=== PATIENT | female | born 1945 | race Caucasian/White ===

== ENCOUNTER → 2018-04-05 | Outpatient (CLI) | payer MEDICARE ==
[~2018-04-05] MED LIST: ALLOPURINOL300 MG PO; ASPIRIN EC81 MG PO; ATENOLOL100 MG PO; DIOVAN HCT 1601 EACH PO; DIOVAN160 MG PO; EMEND80 MG; EMETROL ORAL S236 ML; IOPAMIDOL 370 MG/ML 200 ML INFUS..BTL INJ ONE; KEFLEX500 MG PO; METOCLOPRAMIDE PO; NEUPOGEN480 MCG/0. SC; NORCO 7.5-3251 EACH PO; PREDNISONE50 MG PO; PROMETHAZINE HC25 M1 PO; SIMVASTATIN40 MG PO; SODIUM CHLORIDE 0.9% 250ML 500 ML ONE; SODIUM CHLORIDE 0.9% 50ML 50 ML ONE; VICODIN HP 10-1 EACH PO; ZOLPIDEM TARTRA10 MG PO
--- NOTE | 2018-04-05 13:19 | Diagnostic Imaging Report ---
PROCEDURE: CT ABDOMEN AND PELVIS WITH CONTRAST TECHNIQUE: The abdomen and pelvis were scanned utilizing a multidetector helical scanner from the diaphragm to the lesser trochanter after the IV administration of 100 cc of Isovue 370 and the oral administration of 700 cc of H20. Coronal and sagittal multiplanar reformations were obtained. COMPARISON: CT Abdomen/Pelvis 11/02/13. INDICATIONS: LYMPHOMA FINDINGS: LOWER THORAX: Coronary atherosclerosis. Right fat containing Bochdalek hernia. HEPATOBILIARY: Subcentimeter hypodensity in segment 2 of the liver is too small to characterize and unchanged from CT on 11/02/13 and likely a cyst. No new focal hepatic lesions. No biliary ductal dilatation. SPLEEN: No splenomegaly. Subcentimeter splenic hypodensity is too small to characterize. PANCREAS: No focal masses or ductal dilatation. ADRENALS: A 1.3 cm left adrenal nodule on series 2, image 29 is unchanged from prior CT in 2014 and therefore likely benign. KIDNEYS/URETERS: No hydronephrosis, stones, or solid mass lesions. Left retroperitoneal mass is no longer present. PELVIC ORGANS/BLADDER: The uterus is absent. PERITONEUM / RETROPERITONEUM: No free air or fluid. Previously noted mesenteric masses and lymphadenopathy are no longer present. LYMPH NODES: No lymphadenopathy. VESSELS: Atherosclerotic calcifications of the abdominal aorta and branch vessels. GI TRACT: No wall thickening. Sigmoid diverticulosis without CT evidence of diverticulitis. There has been a prior partial small bowel resection with an anastomosis in the left mid abdomen. Mildly dilated jejunal loop adjacent to the anastomosis measuring up to 3.3 cm, without additional dilated loops to suggest obstruction. Air and enteric contents are present distal to the anastomosis. BONES AND SOFT TISSUES: No acute findings. Multilevel degenerative changes of the thoracolumbar spine. IMPRESSION: Post surgical changes status post interval partial small bowel resection for lymphoma. No specific evidence of lymphoma in the abdomen or pelvis. Dictated by: VIK MASCORRO M.D. on 04/05/2018 at 13:24 Electronically approved by: VIK MASCORRO M.D. on 04/05/2018 at 13:24
== END ==
LOC: CT 11:35
PROVIDERS: ATTEND Internal Medicine Medical Oncology
DX: C85.28 Mediastinal (thymic) large B-cell lymphoma, lymph nodes of multiple sites (principal); R10.9 Unspecified abdominal pain
CPT/HCPCS: 74177; J7050; Q9967

== ENCOUNTER → 2018-09-09 | Outpatient (CLI) | payer MEDICARE ==
[~2018-09-09] MED LIST changes: -IOPAMIDOL 370 MG/ML 200 ML INFUS..BTL INJ ONE; -SODIUM CHLORIDE 0.9% 250ML 500 ML ONE; -SODIUM CHLORIDE 0.9% 50ML 50 ML ONE
--- NOTE | 2018-09-09 12:34 | Diagnostic Imaging Report ---
EXAM: Right upper quadrant abdominal ultrasound COMPARISON: CT Abdomen/Pelvis 04/05/18. TECHNIQUE: Transverse and longitudinal images of the right upper quadrant abdomen were obtained FINDINGS: Liver: Size: 12.2 cm in the right midclavicular line, normal Appearance: Increased echogenicity, smooth contour Mass: No focal masses Gallbladder: Status post cholecystectomy. Bile Ducts: Intrahepatic Ducts: No dilatation Extrahepatic Ducts: Common bile duct measures 0.5 cm, no dilatation Pancreas: Visualized portions of the pancreatic head, neck and proximal body are normal. Kidney: The right kidney measures 8.4 x 4.0 x 4.4 cm without evidence of hydronephrosis or stone. Vessels: Aorta: Visualized portions are normal Inferior Vena Cava: Visualized portions are normal Main Portal Vein: 0.7 cm, normal size with hepatopetal flow. Free Fluid: No evidence of ascites. IMPRESSION: Hepatic steatosis. Status post cholecystectomy. Signed by: Dr. Titi Gómez MD on 09/09/2018 12:31 PM
== END ==
LOC: US 11:43
PROVIDERS: ATTEND Internal Medicine
DX: R10.11 Right upper quadrant pain (principal)
CPT/HCPCS: 76705

== ENCOUNTER → 2018-10-18 | Outpatient (CLI) | payer MEDICARE ==
[~2018-10-18] MED LIST changes: +IOPAMIDOL 370 MG/ML 200 ML INFUS..BTL INJ ONE; +SODIUM CHLORIDE 0.9% 500ML 500 ML ONE; +SODIUM CHLORIDE 0.9% 50ML 50 ML ONE
--- NOTE | 2018-10-18 14:51 | Diagnostic Imaging Report ---
EXAM: CT Chest and abdomen WITH contrast 10/18/2018 9:41 AM INDICATION: Cough. Right upper quadrant pain. Right flank pain. History of lymphoma. Pain in the thoracic spine region. Hypertension. Appendectomy. Cholecystectomy. Pelvic surgery. Abdominal cancer with surgery. Partial small bowel removal. COMPARISON: Ultrasound 09/09/2018 TECHNIQUE: Chest and abdomen was scanned utilizing a multidetector helical scanner after administration of IV contrast. Coronal and sagittal reformations were obtained. Routine protocol was performed. IV CONTRAST: 100 mL of Isovue-370 RADIATION DOSE: Total DLP: 730.32 mGy*cm Estimated effective dose: (DLP x 0.014 x size factor) mSv All CT scans are performed using radiation dose reduction techniques. Technical factors are evaluated and adjusted to ensure appropriate moderation of exposure. Automated dose management technology is applied to adjust the radiation dose to minimize exposure while achieving a diagnostic-quality image. COMPLICATIONS: None FINDINGS: LINES/ TUBES: Left anterior chest port catheter with distal tip in the high superior vena cava. LUNGS AND AIRWAYS: The lungs are unremarkable. Airways are normal. PLEURA: The pleural spaces are clear. HEART AND MEDIASTINUM: The thyroid gland is normal. No mediastinal, hilar or axillary lymphadenopathy. The heart is normal in size.. There is no pericardial effusion. HEPATOBILIARY: There is a too small to characterize hypodensity in the superior left hepatic lobe most likely due to a small cyst. No biliary ductal dilation. GALLBLADDER: Surgically absent SPLEEN: There is a too small contrast hypodensity in the anterior superior spleen as seen on series 2 image 54. PANCREAS: No focal masses or ductal dilatation. ADRENALS: There is nonspecific fullness of the left adrenal gland. The right adrenal gland is unremarkable. KIDNEYS/URETERS: Kidneys enhance symmetrically. No hydronephrosis. No cystic or solid mass lesions. No stones. GI TRACT: No abnormal distention, wall thickening, or evidence of bowel obstruction. PELVIC ORGANS/BLADDER: Unremarkable. LYMPH NODES: No lymphadenopathy. VESSELS: Scattered atherosclerotic calcification. PERITONEUM / RETROPERITONEUM: No free air or fluid. BONES: Scattered degenerative changes are seen. SOFT TISSUES: Unremarkable. IMPRESSION: 1. No acute CT abnormality in the chest or abdomen. 2. There is a too small contrast hypodensity in the anterior superior spleen and in the superior left hepatic lobe. Attention to these areas on follow-up imaging is recommended. Signed by: Dr. Roderick Lopez M.D. on 10/18/2018 2:48 PM
== END ==
LOC: CT 09:33
PROVIDERS: ATTEND Internal Medicine
DX: R05 Cough (principal); C85.90 Non-Hodgkin lymphoma, unspecified, unspecified site; R10.11 Right upper quadrant pain
CPT/HCPCS: 36415; 71260; 74160; 82565; 84520; 96360; J7040; Q9967

== ENCOUNTER 2019-03-22 12:35 | Emergency (ER) | payer MEDICARE ==
[~2019-03-22] VITALS: Ht 165.1 cm; Wt 95.7 kg
[~2019-03-22 12:35] MED LIST changes: -IOPAMIDOL 370 MG/ML 200 ML INFUS..BTL INJ ONE; -SODIUM CHLORIDE 0.9% 500ML 500 ML ONE; -SODIUM CHLORIDE 0.9% 50ML 50 ML ONE
--- OUTSIDE RECORDS SUMMARY | 2019-03-22 12:41 | XMS REPORT | Summary of Care ---
Author Author Susan Grijalva, Nicole Organization Unknown Address Unknown Phone Unavailable Care Team Providers Care Beam Doffer Name Role Phone CHIKA CASE M.D. Unavailable Unavailable Chika Case MD Unavailable Unavailable Unavailable Unavailable Functional Status Name Dates Details Functional status health issues are not documented Status: Name Dates Details Cognitive status health issues are not documented Status: Problems Name Dates Details Coronary artery disease (414.00, I25.10) Status: Active Preop cardiovascular exam (V72.81, Z01.810) Status: Active Medications Name Dates Details Ambien 10 MG Oral Tablet TAKE 1 TABLET AT BEDTIME NEEDED FOR INSOMNIA. Quantity: 30 Active Valsartan 80 MG Oral Tablet TAKE 1 TABLET ONCE DAILY. * Refills: 0 Active Aspir-81 81 MG Oral Tablet Delayed Release TAKE 1 TABLET DAILY. * Quantity: 90 Refills: 3 CHIKA CASE M.D. * Start : 04-May-2017 Active Atenolol 25 MG Oral Tablet TAKE 1 TABLET DAILY * Quantity: 90 Refills: 3 CHIKA CASE M.D. * Start : 04-May-2017 Active 90 Tablet Bottle Atorvastatin Calcium 40 MG Oral Tablet TAKE 1 TABLET BEDTIME * Quantity: 90 Refills: 3 CHIKA CASE M.D. * Start : 04-May-2017 Active Metoprolol Succinate ER 25 MG Oral Tablet Extended Release 24 Hour TAKE 1 TABLET BY MOUTH EVERY DAY * Quantity: 90 Refills: 1 CHIKA CASE M.D. * Start : 26-Nov-2017 Active Allergies and Adverse Reactions Name Dates Details TETANUS (Allergy) Status: Active Ultram TABS (Allergy) Status: Active Procedures Procedure Dates Details Procedures not documented Immunization Name Dates Details Immunizations not documented Social History Name Dates Details - Status: Name Dates Details Never smoker Vital Signs Date Test Result Details No Known Vitals to report Results Date Description Value Details Results not documented Plan of Care Name Dates Details Planned Observations Planned Goals not documented Instructions Name Dates Details Instructions not documented Encounters Appointment; CHIKA CASE M.D. Encounter Diagnosis: Problem not documented On: 04-May-2017 8:00
--- OUTSIDE RECORDS SUMMARY | 2019-03-22 12:41 | XMS REPORT ---
Author Author [facility] Address Unknown Phone Unavailable Care Team Providers Care Legal Coordinator Name Role Phone ANGEL RUIZ Unavailable Unavailable KAL LAWS Unavailable Unavailable Payers Payer Name Policy Type Policy Number Effective Date Expiration Date Problems This patient has no known problems. Allergies, Adverse Reactions, Alerts Allergy Name Allergy Type Status Severity Reaction(s) Onset Date Inactive Date Treating Clinician Comments Tetanus Vaccines and Toxoid DA Active SV 2018-07-06 00:00:00 tramadol HCl DA Active MO 2018-06-30 00:00:00 Tetanus Vaccines and Toxoid DA Active SV 2018-06-30 00:00:00 tramadol HCl DA Active MO 2017-05-19 00:00:00 Tetanus Vaccines and Toxoid DA Active SV 2017-05-19 00:00:00 Medications This patient has no known medications. Results Test Description Test Time Test Comments Text Results Atomic Results Result Comments CT CHEST W 2018-10-18 14:36:00 [place] [address] Patient Name: FRANDY SMITH MR #: [id number] : 1945 Age/Sex: 72/F Req #: [id number] Adm Physician: Ordered by: ANGEL RUIZ MD Report #: [id number] Location: [place] Room/Bed: Procedure: [id number] CT/CT CHEST W Exam Date: 10/18/18 Exam Time: 1115 REPORT STATUS: Signed EXAM: CT Chest and abdomen WITH contrast 10/18/2018 9:41 AM INDICAT ION: Cough. Right upper quadrant pain. Right flank pain. History of lymphoma. Pain in the thoracic spine region. Hypertension. Appendectomy. Cholecystectomy. Pelvic surgery. Abdominal cancer with surgery. Partial small bowel removal. COMPARISON: Ultrasound 09/09/2018 TECHNIQUE: Chest and abdomen was scanned utilizing a multidetector helical scanner after administration of IV contrast. Coronal and sagittal reformations were obtained. Routine protocol was performed. IV CONTRAST: 100 mL of Isovue-370 RADIATION DOSE: Total DLP: 730.32 mGy*cm Estimated effective dose: (DLP x 0.014 x size factor) mSv All CT scans are performed using radiation dose reduction techniques. Technical factors are evaluated and adjusted to ensure appropriate moderation of exposure. Automated dose management technology is applied to adjust the radiation dose to minimize exposure while achieving a diagnostic-quality image. COMPLICATIONS: None FINDINGS: LINES/ TUBES: Left anterior chest port catheter with distal tip in the high superior vena cava. LUNGS AND AIRWAYS: The lungs are unremarkable. Airways are normal. PLEURA: The pleural spaces are clear. HEART AND MEDIASTINUM: The thyroid gland is normal. No mediastinal, hilar or axillary lymphadenopathy. The heart is normal in size.. There is no pericardial effusion. HEPATOBILIARY: There is a too small to characterize hypodensity in the superior left hepatic lobe most likely due to a small cyst. No biliary ductal dilation. GALLBLADDER: Surgically absent SPLEEN: There is a too small contrast hypodensity in the anterior superior spleen as seen on series 2 image 54. PANCREAS: No focal masses or ductal dilatation. ADRENALS: There is nonspecific fullness of the left adrenal gland. The right adrenal gland is unremarkable. KIDNEYS/URETERS: Kidneys enhance symmetrically. No hydronephrosis. No cystic or solid mass lesions. No stones. GI TRACT: No abnormal distention, wall thickening, or evidence of bowel obstruction. PELVIC ORGANS/BLADDER: Unremarkable. LYMPH NODES: No lymphadenopathy. VESSELS: Scattered atherosclerotic calcification. PERITONEUM / RETROPERITONEUM: No free air or fluid. BONES: Scattered degenerative changes are seen. SOFT TISSUES: Unremarkable. IMPRESSION: 1. No acute CT abnormality in the chest or abdomen. 2. There is a too small contrast hypodensity in the anterior superior spleen and in the superior left hepatic lobe. Attention to these areas on follow-up imaging is recommended. Signed by: Dr. Armand Lopez M.D. on 10/18/2018 2:48 PM Dictated By: ARMAND LOPEZ MD, MD 1448 Transcribed By: GONZALEZ on 10/18/18 1448 COPY TO: ANGEL RUIZ MD CT ABDOMEN W 2018-10-18 14:36:00 [place] [address] Patient Name: FRANDY SMITH MR #: [id number] : 1945 Age/Sex: 72/F Req #: [id number] Adm Physician: Ordered by: ANGEL RUIZ MD Report #: [id number] Location: CT Room/Bed: Procedure: [id number] CT/CT ABDOMEN W Exam Date: 10/18/18 Exam Time: 1115 REPORT STATUS: Signed EXAM: CT Chest and abdomen WITH contrast 10/18/2018 9:41 AM INDICATION: Cough. Right upper quadrant pain. Right flank pain. History of lymphoma. Pain in the thoracic spine region. Hypertension. Appendectomy. Cholecystectomy. Pelvic surgery. Abdominal cancer with surgery. Partial small bowel removal. COMPARISON: Ultrasound 09/09/2018 TECHNIQUE: Chest and abdomen was scanned utilizing a multidetector helical scanner after administration of IV contrast. Coronal and sagittal reformations were obtained. Routine protocol was performed. IV CONTRAST: 100 mL of Isovue-370 RADIATION DOSE: Total DLP: 730.32 mGy*cm Estimated effective dose: (DLP x 0.014 x size factor) mSv All CT scans are performed using radiation dose reduction techniques. Technical factors are evaluated and adjusted to ensure appropriate moderation of exposure. Automated dose management technology is applied to adjust the radiation dose to minimize exposure while achieving a diagnostic-quality image. COMPLICATIONS: None FINDINGS: LINES/ TUBES: Left anterior chest port catheter with distal tip in the high superior vena cava. LUNGS AND AIRWAYS: The lungs are unremarkable. Airways are normal. PLEURA: The pleural spaces are clear. HEART AND MEDIASTINUM: The thyroid gland is normal. No mediastinal, hilar or axillary lymphadenopathy. The heart is normal in size.. There is no pericardial effusion. HEPATOBILIARY: There is a too small to characterize hypodensity in the superior left hepatic lobe most likely due to a small cyst. No biliary ductal dilation. GALLBLADDER: Surgically absent SPLEEN: There is a too small contrast hypodensity in the anterior superior spleen as seen on series 2 image 54. PANCREAS: No focal masses or ductal dilatation. ADRENALS: There is nonspecific fullness of the left adrenal gland. The right adrenal gland is unremarkable. KIDNEYS/URETERS: Kidneys enhance symmetrically. No hydronephrosis. No cystic or solid mass lesions. No stones. GI TRACT: No abnormal distention, wall thickening, or evidence of bowel obstruction. PELVIC ORGANS/BLADDER: Unremarkable. LYMPH NODES: No lymphadenopathy. VESSELS: Scattered atherosclerotic calcification. PERITONEUM / RETROPERITONEUM: No free air or fluid. BONES: Scattered degenerative changes are seen. SOFT TISSUES: Unremarkable. IMPRESSION: 1. No acute CT abnormality in the chest or abdomen. 2. There is a too small contrast hypodensity in the anterior superior spleen and in the superior left hepatic lobe. Attention to these areas on follow-up imaging is recommended. Signed by: Dr. Armand Lopez M.D. on 10/18/2018 2:48 PM Dictated By: ARMAND LOPEZ MD, MD 1445 Transcribed By: GONZALEZ on 10/18/18 1447 COPY TO: ANGEL RUIZ MD LIVER 2018-09-09 12:26:00 [facility] [address] [place] [address] Patient Name: FRANDY SMITH MR #: [id number] : 1945 Age/Sex: 72/F Req #: [id number] Adm Physician: Ordered by: ANGEL RUIZ MD Report #: [id number] Location: Room/Bed: Procedure: [id number] US/US LIVER Exam Date: 09/09/18 Exam Time: 1200 REPORT STATUS: Signed EXAM: Right upper quadrant abdominal ultrasound COMPARISON: CT A bdomen/Pelvis 04/05/18. TECHNIQUE: Transverse and longitudinal images of the right upper quadrant abdomen were obtained FINDINGS: Liver: Size: 12.2 cm in the right midclavicular line, normal Appearance: Increased echogenicity, smooth contour Mass: No focal masses Gallbladder: Status post cholecystectomy. Bile Ducts: Intrahepatic Ducts: No dilatation Extrahepatic Ducts: Common bile duct measures 0.5 cm, no dilatation Pancreas: Visualized portions of the pancreatic head, neck and proximal body are normal. Kidney: The right kidney measures 8.4 x 4.0 x 4.4 cm without evidence of hydronephrosis or stone. Vessels: Aorta: Visualized portions are normal Inferior Vena Cava: Visualized portions are normal Main Portal Vein: 0.7 cm, normal size with hepatopetal flow. Free Fluid: No evidence of ascites. IMPRESSION: Hepatic steatosis. Status post cholecystectomy. Signed by: Dr. Vik Mascorro MD on 09/09/2018 12:31 PM Dictated By: VIK MASCORRO MD 1231 Transcribed By: GONZALEZ on 09/09/18 1231 COPY TO: ANGEL RUIZ MD SCR [facility] HELGA CAD DIGITAL 2018-07-29 15:45:48 - SCR MAMM BILATERAL HELGA CAD DIGITALBILATERAL DIGITAL SCREENING MAMMOGRAM 3D/2D WITH CAD: 07/28/2018CLINICAL: Asymptomatic. Digital breast tomosynthesis was performed in addition to routine CC and MLO views. Current mammographic images were evaluated by either a [employer] M-Vu or a [employer] Image[employer]er CAD (computer aided detection system). Comparison is made to exams dated 06/17/2017 mammogram, 04/15 mammogram, 02/11/2015 mammogram, 07/11/2013 mammogram, and 01/05/2012 mammogram - [facility]. There are scattered fibroglandular tissues in both breasts. There are benign calcifications in the left breast. No suspicious mass, architectural distortion, malignant type calcification, or lymph node abnormality detected. Breast architecture is stable compared to prior exams.IMPRESSION: BENIGNThere is no mammographic evidence of malignancy. Resume annual screening mammography in one year. Payton griggs/:07/29/2018 15:45:48 copy to: Angel Ruiz MD, ph: [phone], fax: [phone] Technologist: Lalitha LEACH, [facility] [place] sent: BIRADS 1-2 Normal Mammogram BI-RADS: [address] ABDOMEN/PELVIS W 2018-04-05 13:24:00 [place] [address] Patient Name: FRANDY SMITH MR #: [id number] : 1945 Age/Sex: 72/F Req #: [id number] Adm Physician: Ordered by: KAL LAWS MD Report #: [id number] Location: [place] Room/Bed: Procedure: [id number] CT/CT ABDOMEN/PELVIS W Exam Date: 04/05/18 Exam Time: 1250 REPORT STATUS: Signed PROCEDURE: CT ABDOMEN AND PELVIS WITH CONTRAST TECHNIQUE: The abdomen and pelvis were scanned utilizing a multidetector helical scanner from the diaphragm to the lesser trochanter after the IV administration of 100 cc of Isovue 370 and the oral administration of 700 cc of H20. Coronal and sagittal multiplanar reformations were obtained. COMPARISON: CT Abdomen/Pelvis 11/02/13. INDICATIONS: LYMPHOMA FINDINGS: LOWER THORAX: Coronary atherosclerosis. Right fat containing Bochdalek hernia. HEPATOBILIARY: Subcentimeter hypodensity in segment 2 of the liver is too small to characterize and unchanged from CT on 11/02/13 and likely a cyst. No new focal hepatic lesions. No biliary ductal dilatation. SPLEEN: No splenomegaly. Subcentimeter splenic hypodensity is too small to characterize. PANCREAS: No focal masses or ductal dilatation. ADRENALS: A 1.3 cm left adrenal nodule on series 2, image 29 is unchanged from prior CT in 2013 and therefore likely benign. KIDNEYS/URETERS: No hydronephrosis, stones, or solid mass lesions. Left retroperitoneal mass is no longer present. PELVIC ORGANS/BLADDER: The uterus is absent. PERITONEUM / RETROPERITONEUM: No f ree air or fluid. Previously noted mesenteric masses and lymphadenopathy are no longer present. LYMPH NODES: No lymphadenopathy. VESSELS: Atherosclerotic calcifications of the abdominal aorta and branch vessels. GI TRACT: No wall thickening. Sigmoid diverticulosis without CT evidence of diverticulitis. There has been a prior partial small bowel resection with an anastomosis in the left mid abdomen. Mildly dilated jejunal loop adjacent to the anastomosis measuring up to 3.3 cm, without additional dilated loops to suggest obstruction. Air and enteric contents are present distal to the anastomosis. BONES AND SOFT TISSUES: No acute findings. Multilevel degenerative changes of the thoracolumbar spine. IMPRESSION: Post surgical changes status post interval partial small bowel resection for lymphoma. No specific evidence of lymphoma in the abdomen or pelvis. Dictated by: VIK MASCORRO M.D. on 04/05/2018 at 13:24 Electronically approved by: VIK MASCORRO M.D. on 04/05/2018 at 13:24 Dictated By: VIK MASCORRO MD 1324 Transcribed By: BHUMIKA on 04/05/18 1324 COPY TO: KAL LAWS MD
[2019-03-22 13:53] LABS: BASOPHILS % 0.5 % (0.0-1.0); EOSINOPHILS # (AUTO) 0.1 (0.0-0.4); EOSINOPHILS % 0.8 % (0.0-6.0); HEMATOCRIT 46.5 % (34.2-44.1); HEMOGLOBIN 15.4 g/dL (12.0-16.0); LYMPHOCYTES # (AUTO) 1.4 (1.0-3.2); MEAN CORPUSCULAR HGB CONC 33.1 g/dL (31-35); MEAN CORPUSCULAR VOLUME 90.5 fL (81-99); MONOCYTES # (AUTO) 0.5 (0.2-0.8); MONOCYTES % 7.2 % (4.4-11.3); NEUTROPHILS # (AUTO) 4.4 (2.1-6.9); NEUTROPHILS % 69.3 % (38.7-80.0); PLATELET COUNT 151 x10e3/uL (140-360); RED BLOOD COUNT 5.14 x10e6/uL (3.6-5.1); RED CELL DISTRIBUTION WIDTH 12.8 % (11.7-14.4)
[2019-03-22 14:14] LABS: ALBUMIN 4.4 g/dL (3.5-5.0); ALBUMIN/GLOBULIN RATIO 1.5 (0.8-2.0); ANION GAP 13.5 mmol/L (8-16); CALCIUM 10.1 mg/dL (8.4-10.2); CREATININE, SERUM 1.11 mg/dL (0.57-1.11); POTASSIUM 4.5 mmol/L (3.5-5.1)
[2019-03-22 14:20] LABS: CREATINE KINASE MB 0.9 ng/mL (0-5.0)
--- NOTE | 2019-03-22 14:33 | Diagnostic Imaging Report ---
CT BRAIN WO HISTORY: Headache COMPARISON: None. TECHNIQUE: Noncontrast axial scans were obtained from skull base to the vertex. Coronal and sagittal reconstructions obtained from the axial data. One or more of the following dose reduction techniques were used: Automated exposure control, adjustment of the mA and/or kV according to patient size, and/or utilization of iterative reconstruction technique. DISCUSSION: Scalp/Skull: Unremarkable. Brain sulci: Appropriate for patient's age. Ventricles: Normal in size and configuration. No hydrocephalus. Extra-axial spaces: No masses or fluid collections. Mild carotid siphon calcifications are present. Parenchyma: Mild periventricular white matter hypodensities are likely chronic microvascular ischemic changes. Punctate subcortical calcification in the left superior frontal gyrus may be from remote infection or inflammation. Otherwise, no mass, acute hemorrhage, or large vascular territory acute infarct. Dural sinuses: No abnormal densities. Sellar/Suprasellar region: Intact. Skull base: Intact. Incidental findings: Both ocular lenses are thinned. IMPRESSION: 1. No acute intracranial abnormalities. 2. Mild supratentorial chronic microvascular ischemic change. 3. Punctate subcortical calcification in the left superior frontal gyrus may be from remote infection or inflammation. Signed by: Dr. Leonadro Mcgill M.D. on 03/22/2019 2:29 PM
--- NOTE | 2019-03-22 14:43 | Diagnostic Imaging Report ---
EXAMINATION: CHEST SINGLE (PORTABLE) INDICATION: Dizziness, shortness of breath COMPARISON: Chest CT of 10/18/2018 FINDINGS: TUBES and LINES: Left chest port with tip near the confluence of innominate veins. LUNGS: The lung volumes are normal. No focal consolidation or pulmonary edema. PLEURA: No pleural effusion or pneumothorax. HEART AND MEDIASTINUM: The cardiomediastinal silhouette is normal in size and contour. BONES AND SOFT TISSUES: No acute fracture or dislocation. UPPER ABDOMEN: No free air under the diaphragm. IMPRESSION: No focal pneumonia or pulmonary edema. Signed by: Aime Mcclure MD on 03/22/2019 2:40 PM
[2019-03-22 14:46] LABS: BILIRUBIN,URINE NEGATIVE (NEGATIVE); CLARITY,URINE CLEAR (CLEAR); COLOR,URINE YELLOW (YELLOW); KETONES,URINE NEGATIVE (NEGATIVE); LEUKOCYTE ESTERASE ,URINE NEGATIVE (NEGATIVE); NITRITE,URINE NEGATIVE (NEGATIVE); PROTEIN,URINE DIPSTICK NEGATIVE (NEGATIVE); URINE UROBILINOGEN 0.2 mg/dL (0.2 - 1)
[2019-03-22 14:59] LABS: EPITHELIAL CELLS,URINE FEW /LPF
[2019-03-22] MEDS ORDERED: KETOROLAC TROMETHAMINE 30 MG/ML VIAL IV STA (15:11)
[2019-03-22] MEDS ORDERED: MECLIZINE HCL 12.5 MG TAB PO ONE (15:15)
[2019-03-22 16:19] VITALS: BP 123/61
== END 2019-03-22 16:36 | disposition home or self-care (01) ==
LOC: ER 12:35
DX: H81.11 Benign paroxysmal vertigo, right ear (principal); G44.52 New daily persistent headache (NDPH); G44.221 Chronic tension-type headache, intractable
CPT/HCPCS: 36415; 70450; 71045; 80053; 81001; 82550; 82553; 84484; 85025; 87086; 93005; 99284; J1885; J8597

== ENCOUNTER → 2021-09-22 | Outpatient (CLI) | payer MEDICARE ==
[~2021-09-22] MED LIST changes: +IOPAMIDOL 370 MG/ML 200 ML INFUS..BTL INJ ONE; +SODIUM CHLORIDE 0.9% 500ML 500 ML ONE; +SODIUM CHLORIDE 0.9% 50ML 50 ML ONE
[2021-09-22 14:08] LABS: CREATININE, SERUM 0.98 mg/dL (0.57-1.11)
== END ==
LOC: CT 13:02
PROVIDERS: ATTEND Internal Medicine Medical Oncology
DX: C85.90 Non-Hodgkin lymphoma, unspecified, unspecified site (principal); K76.0 Fatty (change of) liver, not elsewhere classified
CPT/HCPCS: 36415; 74177; 82565; 84520; 96360; J7040; Q9967

== ENCOUNTER → 2022-10-14 | Outpatient (CLI) | payer MEDICARE ==
[~2022-10-14] MED LIST changes: -IOPAMIDOL 370 MG/ML 200 ML INFUS..BTL INJ ONE; +LORAZEPAM INJ 2 MG/ML VIAL ONE; +ONDANSETRON HCL INJ 2MG/ML 2ML 2 MG/ML VIAL ONE; -SODIUM CHLORIDE 0.9% 500ML 500 ML ONE; -SODIUM CHLORIDE 0.9% 50ML 50 ML ONE
== END ==
LOC: MRI 10:24
PROVIDERS: ATTEND Internal Medicine
DX: M54.30 Sciatica, unspecified side (principal)
CPT/HCPCS: 72148; J2060; J2405

== ENCOUNTER 2022-11-05 08:57 | Observation (INO) | payer MEDICARE ==
[2022-11-04 10:32] LABS: BASOPHILS # (AUTO) 0.1 (0.0-0.1); BASOPHILS % 0.9 % (0.0-1.0); EOSINOPHILS # (AUTO) 0.1 (0.0-0.4); EOSINOPHILS % 2.3 % (0.0-6.0); HEMATOCRIT 46.7 % (34.2-44.1); HEMOGLOBIN 15.1 g/dL (12.0-16.0); LYMPHOCYTES # (AUTO) 1.5 (1.0-3.2); LYMPHOCYTES % 28.4 % (18.0-39.1); MEAN CORPUSCULAR HEMOGLOBIN 29.5 pg (28-32); MEAN CORPUSCULAR HGB CONC 32.3 g/dL (31-35); MEAN CORPUSCULAR VOLUME 91.4 fL (81-99); MONOCYTES # (AUTO) 0.5 (0.2-0.8); MONOCYTES % 9.2 % (4.4-11.3); NEUTROPHILS # (AUTO) 3.1 (2.1-6.9); PLATELET COUNT 173 x10e3/uL (140-360); RED BLOOD COUNT 5.11 x10e6/uL (3.6-5.1); RED CELL DISTRIBUTION WIDTH 13.2 % (11.7-14.4)
[2022-11-04 10:54] LABS: ANION GAP 13.9 mmol/L (8-16); BLOOD UREA NITROGEN 15 mg/dL (7-26); BUN/CREATININE RATIO 15 (6-25); CALCIUM 9.4 mg/dL (8.4-10.2); CARBON DIOXIDE 27 mmol/L (22-29); CHLORIDE 106 mmol/L (98-107); GLUCOSE 95 mg/dL (74-118); POTASSIUM 3.9 mmol/L (3.5-5.1); SODIUM 143 mmol/L (136-145)
[2022-11-04 11:19] LABS: INR 0.98; PROTHROMBIN TIME 13.2 seconds (11.9-14.5)
[2022-11-04] MEDS: MECLIZINE HCL 12.5 MG TAB PO SCH (21:00)
[2022-11-05] VITALS (8 sets, daily range): BP systolic 97–115; BP diastolic 53–90
[~2022-11-05] VITALS: Ht 165.1 cm; Wt 91.6 kg
[~2022-11-05 08:57] MED LIST changes: +EYE VITAMIN; +FLONASE ALLERG9.9 ML INH; -LORAZEPAM INJ 2 MG/ML VIAL ONE; +MECLIZINE HCL12.5 MG PO; +MULTI-VITAMIN1 EACH PO; -ONDANSETRON HCL INJ 2MG/ML 2ML 2 MG/ML VIAL ONE; +ONDANSETRON ODT4 MG PO; +PRESERVISION A1 EAC2; +XANAX0.25 MG PO
[2022-11-05] MEDS ORDERED: CEFAZOLIN SODIUM 2 GM ONE (09:43)
[2022-11-05] MEDS ORDERED: FENTANYL CITRATE/PF 100MCG/2 ML INJ ONE (11:15)
[2022-11-05] MEDS ORDERED: MIDAZOLAM HCL 2 MG/2 ML VIAL ONE (11:15)
[2022-11-05] MEDS ORDERED: SEVOFLURANE INHAL SOLN 250 ML PEN BTL ONE (12:01)
[2022-11-05] MEDS ORDERED: DEXAMETHASONE SOD PHOS INJ 4 MG/ML SDV ONE (12:01)
[2022-11-05] MEDS ORDERED: ONDANSETRON HCL INJ 2MG/ML 2ML 2 MG/ML VIAL ONE (12:01)
[2022-11-05] MEDS ORDERED: POVIDONE IODINE 0.05% 0.05 % ML PO ONE (12:01)
[2022-11-05] MEDS ORDERED: PROPOFOL IV EMULSION 10 MG/ML 20 ML VIAL ONE (12:01)
[2022-11-05] MEDS ORDERED: LIDOCAINE HCL 2% LOCAL INJ 5 ML SDV VIAL INJ ONE (12:01)
[2022-11-05] MEDS ORDERED: EYE LUBRICANT OPTH OINT 3.5GM TUBE OP ONE (12:01)
[2022-11-05] MEDS ORDERED: HYDROCODON-ACE1 EA12 PO (12:20)
[2022-11-05] MEDS ORDERED: MAGNESIUM/ALUMINUM/SIMETHICONE 30 ML UDC PO PRN (12:30)
[2022-11-05] MEDS ORDERED: CARISOPRODOL 350 MG TAB PO PRN (12:30)
[2022-11-05] MEDS ORDERED: HYDROMORPHONE 1MG/1ML INJ IV PRN (12:30)
[2022-11-05] MEDS ORDERED: ONDANSETRON HCL 4 MG ORAL DISINTEGRATING TAB PO SCH (12:30)
[2022-11-05] MEDS ORDERED: ZOLPIDEM TARTRATE 5 MG TAB PO PRN (12:30)
[2022-11-05] MEDS: LACTATED RINGER'S 1,000 ML IV SCH ×2 (12:30→20:25)
[2022-11-05] MEDS ORDERED: PROMETHAZINE HCL (IM) 25 MG/ML VIAL IM PRN (12:30)
[2022-11-05] MEDS ORDERED: ONDANSETRON HCL INJ 2MG/ML 2ML 2 MG/ML VIAL IV PRN (12:30)
[2022-11-05] MEDS ORDERED: ACETAMINOPHEN 325 MG TAB PO PRN (12:30)
[2022-11-05] MEDS ORDERED: MORPHINE SULFATE 5 MG/ML VIAL IM PRN (12:30)
[2022-11-05] MEDS ORDERED: ALPRAZOLAM 0.25 MG TAB PO PRN (12:30)
[2022-11-05] MEDS ORDERED: HYDROMORPHONE 1MG/1ML INJ ONE (13:56)
[2022-11-05] MEDS: OXYCODONE/ACETAMINOPHEN 5-325 1 EACH TABLET PO PRN ×2 (14:32→20:25)
[2022-11-05] MEDS ORDERED: OXYCODONE/ACETAMINOPHEN 5-325 1 EACH TABLET ONE (14:42)
[2022-11-05] MEDS ORDERED: CARISOPRODOL 350 MG TAB ONE (14:42)
[2022-11-05] MEDS: MECLIZINE HCL 12.5 MG TAB PO SCH (15:00)
[2022-11-05] MEDS ORDERED: METOCLOPRAMIDE HCL 10 MG/2ML VIAL ONE (15:43)
[2022-11-05] MEDS ORDERED: FLUTICASONE PROPIONATE NASAL SPRAY NS SCH (21:00)
[2022-11-05] MEDS ORDERED: ZOLPIDEM TARTRATE 10 MG TAB PO SCH (21:00)
[2022-11-05] MEDS ORDERED: NON-FORMULARY MEDICATION (Fluticasone Propionate* (Flonase Allergy Relief*) 1 EACH) INH SCH (21:00)
[2022-11-06 02:12] VITALS: BP 106/52
[2022-11-06 04:57] VITALS: BP 115/63
[2022-11-06] MEDS: LACTATED RINGER'S 1,000 ML IV SCH (06:05)
[2022-11-06] MEDS ORDERED: MULTIVITAMINS/MINERALS TAB PO SCH (09:00)
[2022-11-06 09:06] VITALS: BP 125/53
[2022-11-06] MEDS: MECLIZINE HCL 12.5 MG TAB PO SCH (09:27)
[2022-11-06 10:30] VITALS: BP 125/53
[2022-11-06] MEDS ORDERED: ONDANSETRON HCL 4 MG ORAL DISINTEGRATING TAB PO PRN (13:00)
== END 2022-11-06 14:00 | disposition home or self-care (01) ==
LOC: OR 08:57 → PACU V 12:18 → MED/SURG 15:35
PROVIDERS: ADMIT Neurological Surgery; ATTEND Neurological Surgery
DX: M48.02 Spinal stenosis, cervical region (principal); Z01.818 Encounter for other preprocedural examination; Z20.822 Contact with and (suspected) exposure to COVID-19; M19.90 Unspecified osteoarthritis, unspecified site; E78.5 Hyperlipidemia, unspecified; F41.9 Anxiety disorder, unspecified; G89.29 Other chronic pain
CPT/HCPCS: 0223U; 36415; 63047; 63048; 71046; 72020; 80048; 85025; 85610; 85730; 86850; 86900; 88304; 88311; 93005; 97161; 97530 ×2; G0378 ×2; J0690 ×2; J1100; J1170 ×2; J2001; J2250; J2405 ×2; J2550; J2704; J2765; J3010; J7121 ×2; J8597

== ENCOUNTER → 2023-01-05 | Outpatient (CLI) | payer MEDICARE ==
[~2023-01-05] MED LIST changes: +HYDROCODON-ACE1 EA12 PO
== END ==
LOC: DX 09:32
PROVIDERS: ATTEND Internal Medicine
DX: R13.12 Dysphagia, oropharyngeal phase (principal)
CPT/HCPCS: 74240

== ENCOUNTER → 2023-02-10 | Outpatient (CLI) | payer MEDICARE | LOC: CT 13:58 | PROVIDERS: ATTEND Physician Assistant | DX: R06.09 Other forms of dyspnea (principal); G44.52 New daily persistent headache (NDPH); J30.9 Allergic rhinitis, unspecified | CPT/HCPCS: 70450 ==

== ENCOUNTER 2024-05-20 16:05 | Emergency (ER) | payer MEDICARE ==
[~2024-05-20] VITALS: Ht 165.1 cm; Wt 91.6 kg
[2024-05-20] MEDS: KETOROLAC TROMETHAMINE 60 MG/2 ML VIAL IM ONE (16:58)
[2024-05-20] MEDS: DIAZEPAM 5 MG TAB PO STA (16:59)
[2024-05-20 17:41] LABS: BILIRUBIN,URINE SMALL (NEGATIVE); CLARITY,URINE HAZY (CLEAR); COLOR,URINE YELLOW (YELLOW); GLUCOSE, URINE NEGATIVE (NEGATIVE); KETONES,URINE TRACE (NEGATIVE); LEUKOCYTE ESTERASE ,URINE NEGATIVE (NEGATIVE); NITRITE,URINE POSITIVE (NEGATIVE); PH,URINE 5 (5 - 7); PROTEIN,URINE DIPSTICK 1+ (NEGATIVE); URINE UROBILINOGEN 0.2 mg/dL (0.2 - 1)
[2024-05-20 17:42] LABS: BACTERIA,URINE MODERATE /HPF; EPITHELIAL CELLS,URINE FEW /LPF; RBC,URINE 0-5 /HPF (0-5)
[2024-05-20] MEDS: CEFDINIR 300 MG CAP PO ONE (19:00)
[2024-05-20] MEDS ORDERED: CEFDINIR300 MG PO (19:00)
[2024-05-20] MEDS ORDERED: VALIUM2 MG PO (19:00)
[2024-05-20 19:03] VITALS: PULSE 78; RESP 20; TEMP 98.4; O2SAT 97
[2024-05-21] MEDS ORDERED: CYCLOBENZAPRINE10 MG PO (21:18)
== END 2024-05-20 19:11 | disposition home or self-care (01) ==
LOC: ER 16:25
DX: R05.9 Cough, unspecified (principal); M62.830 Muscle spasm of back; N39.0 Urinary tract infection, site not specified; I48.91 Unspecified atrial fibrillation; I49.5 Sick sinus syndrome; G47.30 Sleep apnea, unspecified; K21.9 Gastro-esophageal reflux disease without esophagitis; F41.9 Anxiety disorder, unspecified; R94.31 Abnormal electrocardiogram [ECG] [EKG]; Z85.72 Personal history of non-Hodgkin lymphomas
CPT/HCPCS: 71045; 81001; 87086; 87186; 93005; 99283; J1885

== ENCOUNTER 2024-05-21 18:29 | Emergency (ER) | payer MEDICARE ==
[~2024-05-21] VITALS: Ht 165.1 cm; Wt 91.6 kg
[~2024-05-21 18:29] MED LIST changes: +CEFDINIR300 MG PO; +VALIUM2 MG PO
[2024-05-21 19:05] VITALS: TEMP 97.9
[2024-05-21] MEDS: KETOROLAC TROMETHAMINE 60 MG/2 ML VIAL IM ONE (19:53)
[2024-05-21 21:00] VITALS: PULSE 61; RESP 17; O2SAT 99
[2024-05-21] MEDS ORDERED: CYCLOBENZAPRINE10 MG PO (21:18)
== END 2024-05-21 21:31 | disposition home or self-care (01) ==
LOC: ER 18:41
DX: M54.50 Low back pain, unspecified (principal); I48.91 Unspecified atrial fibrillation; N18.9 Chronic kidney disease, unspecified; K21.9 Gastro-esophageal reflux disease without esophagitis; G47.30 Sleep apnea, unspecified; F41.9 Anxiety disorder, unspecified; Z85.72 Personal history of non-Hodgkin lymphomas
CPT/HCPCS: 72131; 74176; 99283; J1885

== ENCOUNTER 2024-09-10 18:56 | Emergency (ER) | payer MEDICARE ==
[~2024-09-10] VITALS: Ht 165.1 cm; Wt 88.0 kg
[~2024-09-10 18:56] MED LIST changes: +CYCLOBENZAPRINE10 MG PO
[2024-09-10 19:29] VITALS: PULSE 80; RESP 18; TEMP 98.5; O2SAT 97
[2024-09-10] MEDS ORDERED: TRAMADOL HCL 50 MG TAB PO ONE (19:45)
[2024-09-10] MEDS: ONDANSETRON HCL 4 MG ORAL DISINTEGRATING TAB PO ONE (21:15)
[2024-09-10] MEDS: KETOROLAC TROMETHAMINE 30 MG/ML VIAL IM STA (21:15)
[2024-09-10] MEDS ORDERED: ONDANSETRON ODT4 MG PO (22:04)
[2024-09-10 22:10] VITALS: BP 135/61; PULSE 18; RESP 18; TEMP 98.5
[2024-09-12] MEDS ORDERED: KETOROLAC TROME10 MG PO (12:18)
== END 2024-09-10 22:10 | disposition home or self-care (01) ==
LOC: FSED 19:35
DX: M54.50 Low back pain, unspecified (principal); R11.0 Nausea; I48.91 Unspecified atrial fibrillation; N18.9 Chronic kidney disease, unspecified; K21.9 Gastro-esophageal reflux disease without esophagitis; F41.9 Anxiety disorder, unspecified; G47.30 Sleep apnea, unspecified; Z11.52 Encounter for screening for COVID-19; Z85.72 Personal history of non-Hodgkin lymphomas; Z87.19 Personal history of other diseases of the digestive system; Z95.810 Presence of automatic (implantable) cardiac defibrillator
CPT/HCPCS: 0223U; 72131; 81003; 87400; 96372; 99283; J1885; Q0162

== ENCOUNTER 2024-10-17 09:06 | Inpatient (IN) | payer MEDICARE ==
[2024-10-17] VITALS (18 sets, daily range): BP systolic 87–123; BP diastolic 36–84; PULSE 59–95; RESP 14–23; TEMP 98.2–98.6; O2SAT 94–100
[~2024-10-17] VITALS: Ht 165.1 cm; Wt 86.2 kg
[~2024-10-17 09:06] MED LIST changes: +KETOROLAC TROME10 MG PO
[2024-10-17 10:08] LABS: BASOPHILS % 0.6 % (0.0-1.0); EOSINOPHILS # (AUTO) 0.1 (0.0-0.4); EOSINOPHILS % 1.9 % (0.0-6.0); HEMATOCRIT 29.6 % (34.2-44.1); HEMOGLOBIN 8.7 g/dL (12.0-16.0); LYMPHOCYTES # (AUTO) 1.1 (1.0-3.2); LYMPHOCYTES % 15.7 % (18.0-39.1); MEAN CORPUSCULAR HEMOGLOBIN 23.1 pg (28-32); MEAN CORPUSCULAR HGB CONC 29.4 g/dL (31-35); MEAN CORPUSCULAR VOLUME 78.7 fL (81-99); MONOCYTES # (AUTO) 0.4 (0.2-0.8); MONOCYTES % 6.4 % (4.4-11.3); NEUTROPHILS # (AUTO) 5.2 (2.1-6.9); PLATELET COUNT 262 x10e3/uL (140-360); RED BLOOD COUNT 3.76 x10e6/uL (3.6-5.1); RED CELL DISTRIBUTION WIDTH 14.9 % (11.7-14.4)
[2024-10-17] MEDS: ONDANSETRON HCL INJ 2MG/ML 2ML 2 MG/ML VIAL IV STA (10:27)
[2024-10-17] MEDS: SODIUM CHLORIDE 0.9% 1000ML 1,000 ML IV STA ×2 (10:27→13:10)
[2024-10-17] MEDS: DILTIAZEM HCL 5 MG/ML 5 ML VIAL IV STA ×2 (10:27→13:10)
[2024-10-17] MEDS: Morphine 2mg Syringe 2 MG/ML SYR IV ONE (10:28)
[2024-10-17] MEDS: PROMETHAZINE 12.5MG/ NACL 0.9% 12.5 MG/50 ML BAG IV ONE (10:28)
[2024-10-17 10:37] LABS: ALANINE AMINOTRANSFERASE 7 IU/L (0-55); ALBUMIN 3.5 g/dL (3.5-5.0); ALBUMIN/GLOBULIN RATIO 1.8 (0.8-2.0); ALKALINE PHOSPHATASE 79 IU/L (40-150); ANION GAP 13.9 mmol/L (8-16); BILIRUBIN,TOTAL 0.3 mg/dL (0.2-1.2); BLOOD UREA NITROGEN 18 mg/dL (7-26); BUN/CREATININE RATIO 18 (6-25); CALCIUM 8.2 mg/dL (8.4-10.2); CARBON DIOXIDE 24 mmol/L (22-29); CHLORIDE 106 mmol/L (98-107); CREATINE KINASE 24 IU/L (29-168); EST GLOMERULAR FILTRATION RATE 58 ML/MIN (>=60); GLUCOSE 121 mg/dL (74-118); POTASSIUM 3.9 mmol/L (3.5-5.1); SODIUM 140 mmol/L (136-145); TOTAL PROTEIN 5.5 g/dL (6.5-8.1)
[2024-10-17 10:38] LABS: INR 1.06; PROTHROMBIN TIME 14.4 seconds (11.9-14.5)
[2024-10-17 10:39] LABS: PARTIAL THROMBOPLASTIN TIME 26.7 seconds (23.8-35.5)
[2024-10-17 10:47] LABS: TROPONIN I < 0.001 ng/mL (0-0.300)
[2024-10-17 10:58] LABS: FREE THYROXINE INDEX 1.9161 (1.4-3.8); T3 UPTAKE 29.57 % (22.5-37.0); THYROID STIMULATING HORMONE 3.603 uIU/mL (0.350-4.940)
[2024-10-17 11:02] LABS: T4 (THYROXINE) 6.48 ug/dL (4.5-10.9)
[2024-10-17] MEDS ORDERED: IOPAMIDOL 370 MG/ML 100 ML INFUS..BTL INJ ONE (11:15)
[2024-10-17] MEDS: METOPROLOL TARTRATE 25 MG TAB PO ONE (12:55)
[2024-10-17] MEDS: AMIODARONE HCL 150 MG/100 ML BAG IV ONE (13:02)
[2024-10-17] MEDS: DIGOXIN INJ 0.25 MG/ML 2 ML AMP IV ONE (13:11)
[2024-10-17] MEDS ORDERED: Morphine 2mg Syringe 2 MG/ML SYR IV PRN (13:15)
[2024-10-17] MEDS ORDERED: PROMETHAZINE HCL (IM) 25 MG/ML VIAL IM PRN (13:15)
[2024-10-17] MEDS: AMIODARONE 900MG 500 ML IV SCH (13:41)
[2024-10-17 15:31] LABS: CLARITY,URINE HAZY (CLEAR); COLOR,URINE YELLOW (YELLOW); LEUKOCYTE ESTERASE ,URINE NEGATIVE (NEGATIVE); NITRITE,URINE POSITIVE (NEGATIVE); PH,URINE 7 (5 - 7)
[2024-10-17 15:32] LABS: BILIRUBIN,URINE NEGATIVE (NEGATIVE); GLUCOSE, URINE NEGATIVE (NEGATIVE); KETONES,URINE NEGATIVE (NEGATIVE); PROTEIN,URINE DIPSTICK NEGATIVE (NEGATIVE); URINE UROBILINOGEN 0.2 mg/dL (0.2 - 1)
[2024-10-17 15:41] LABS: BACTERIA,URINE MANY /HPF
[2024-10-17 15:43] LABS: EPITHELIAL CELLS,URINE FEW /LPF; WBC,URINE (MAN) 0-5 /HPF (0-5)
[2024-10-17] MEDS: ENOXAPARIN SODIUM INJ 100 MG/ML SYR SC SCH (15:55)
[2024-10-17] MEDS: SODIUM CHLORIDE 0.9% 1000ML 1,000 ML IV ONE (15:56)
[2024-10-17] MEDS: METOPROLOL SUCCINATE 25 MG TAB XL PO SCH (17:59)
[2024-10-17 20:33] LABS: TROPONIN I 0.01 ng/mL (0-0.300)
[2024-10-18] VITALS (27 sets, daily range): BP systolic 95–147; BP diastolic 30–70; PULSE 62–84; RESP 11–25; TEMP 98.2–98.6; O2SAT 96–100
[2024-10-18 01:44] LABS: TROPONIN I 0.02 ng/mL (0-0.300)
[2024-10-18 06:57] LABS: BASOPHILS % 0.5 % (0.0-1.0); EOSINOPHILS # (AUTO) 0.2 (0.0-0.4); EOSINOPHILS % 2.1 % (0.0-6.0); HEMATOCRIT 26.7 % (34.2-44.1); LYMPHOCYTES # (AUTO) 1.5 (1.0-3.2); LYMPHOCYTES % 19.6 % (18.0-39.1); MEAN CORPUSCULAR HEMOGLOBIN 23.2 pg (28-32); MEAN CORPUSCULAR HGB CONC 29.2 g/dL (31-35); MEAN CORPUSCULAR VOLUME 79.5 fL (81-99); MONOCYTES # (AUTO) 0.7 (0.2-0.8); MONOCYTES % 8.7 % (4.4-11.3); NEUTROPHILS # (AUTO) 5.2 (2.1-6.9); NEUTROPHILS % 68.7 % (38.7-80.0); PLATELET COUNT 225 x10e3/uL (140-360); RED BLOOD COUNT 3.36 x10e6/uL (3.6-5.1); RED CELL DISTRIBUTION WIDTH 15.5 % (11.7-14.4); WHITE BLOOD COUNT 7.57 x10e3/uL (4.8-10.8)
[2024-10-18 06:58] LABS: HEMOGLOBIN 7.8 g/dL (12.0-16.0)
[2024-10-18 07:45] LABS: ALBUMIN 2.9 g/dL (3.5-5.0); ALBUMIN/GLOBULIN RATIO 1.5 (0.8-2.0); ANION GAP 11.7 mmol/L (8-16); BILIRUBIN,TOTAL 0.6 mg/dL (0.2-1.2); CALCIUM 7.9 mg/dL (8.4-10.2); CREATININE, SERUM 1.13 mg/dL (0.57-1.11); POTASSIUM 3.7 mmol/L (3.5-5.1); TOTAL PROTEIN 4.9 g/dL (6.5-8.1)
[2024-10-18 08:22] LABS: TROPONIN I 0.028 ng/mL (0-0.300)
[2024-10-18] MEDS: PSYLLIUM 6GM PACKET PO SCH (08:28)
[2024-10-18] MEDS: SENNOSIDES 8.6 MG TAB PO SCH (08:28)
[2024-10-18] MEDS: ONDANSETRON HCL INJ 2MG/ML 2ML 2 MG/ML VIAL IV PRN (08:55)
[2024-10-18] MEDS: AMIODARONE HCL 200 MG TAB PO SCH (12:02)
[2024-10-18] MEDS: METRONIDAZOLE 500MG/NS 100ML 100 ML IV SCH (13:30)
[2024-10-19] VITALS (20 sets, daily range): BP systolic 111–156; BP diastolic 46–66; PULSE 62–90; RESP 12–25; TEMP 97.8–98.2; O2SAT 97–100
[2024-10-19] MEDS: ACETAMINOPHEN 325 MG TAB PO PRN (04:15)
[2024-10-19 07:08] LABS: BASOPHILS # (AUTO) 0.1 (0.0-0.1); BASOPHILS % 0.9 % (0.0-1.0); EOSINOPHILS # (AUTO) 0.2 (0.0-0.4); EOSINOPHILS % 3.8 % (0.0-6.0); HEMATOCRIT 25.1 % (34.2-44.1); HEMOGLOBIN 7.4 g/dL (12.0-16.0); LYMPHOCYTES # (AUTO) 1.4 (1.0-3.2); LYMPHOCYTES % 23.6 % (18.0-39.1); MEAN CORPUSCULAR HEMOGLOBIN 23.4 pg (28-32); MEAN CORPUSCULAR HGB CONC 29.5 g/dL (31-35); MEAN CORPUSCULAR VOLUME 79.4 fL (81-99); MONOCYTES # (AUTO) 0.6 (0.2-0.8); MONOCYTES % 10.2 % (4.4-11.3); NEUTROPHILS # (AUTO) 3.6 (2.1-6.9); NEUTROPHILS % 61.2 % (38.7-80.0); PLATELET COUNT 194 x10e3/uL (140-360); RED BLOOD COUNT 3.16 x10e6/uL (3.6-5.1); RED CELL DISTRIBUTION WIDTH 15.5 % (11.7-14.4); WHITE BLOOD COUNT 5.81 x10e3/uL (4.8-10.8)
[2024-10-19 07:34] LABS: ALBUMIN 2.9 g/dL (3.5-5.0); ALBUMIN/GLOBULIN RATIO 1.4 (0.8-2.0); ANION GAP 12.1 mmol/L (8-16); BILIRUBIN,TOTAL 0.5 mg/dL (0.2-1.2); CALCIUM 7.8 mg/dL (8.4-10.2); CREATININE, SERUM 0.98 mg/dL (0.57-1.11)
[2024-10-19 07:37] LABS: POTASSIUM 3.1 mmol/L (3.5-5.1)
[2024-10-20] VITALS (12 sets, daily range): BP systolic 116–149; BP diastolic 44–71; PULSE 61–91; RESP 14–26; TEMP 97.9–98.5; O2SAT 100
[2024-10-20 06:57] LABS: BASOPHILS % 0.7 % (0.0-1.0); EOSINOPHILS # (AUTO) 0.2 (0.0-0.4); EOSINOPHILS % 2.6 % (0.0-6.0); HEMATOCRIT 24.7 % (34.2-44.1); HEMOGLOBIN 7.3 g/dL (12.0-16.0); LYMPHOCYTES % 16.4 % (18.0-39.1); MEAN CORPUSCULAR HGB CONC 29.6 g/dL (31-35); MEAN CORPUSCULAR VOLUME 77.9 fL (81-99); MONOCYTES # (AUTO) 0.5 (0.2-0.8); MONOCYTES % 8.6 % (4.4-11.3); NEUTROPHILS # (AUTO) 4.1 (2.1-6.9); PLATELET COUNT 210 x10e3/uL (140-360); RED BLOOD COUNT 3.17 x10e6/uL (3.6-5.1); RED CELL DISTRIBUTION WIDTH 15.4 % (11.7-14.4); WHITE BLOOD COUNT 5.79 x10e3/uL (4.8-10.8)
[2024-10-20 07:21] LABS: ALBUMIN 2.9 g/dL (3.5-5.0); ALBUMIN/GLOBULIN RATIO 1.5 (0.8-2.0); ANION GAP 13.9 mmol/L (8-16); BILIRUBIN,TOTAL 0.4 mg/dL (0.2-1.2); CALCIUM 7.9 mg/dL (8.4-10.2); CREATININE, SERUM 0.98 mg/dL (0.57-1.11); TOTAL PROTEIN 4.9 g/dL (6.5-8.1)
[2024-10-20 07:25] LABS: POTASSIUM 2.9 mmol/L (3.5-5.1)
[2024-10-20] MEDS: POTASSIUM CHLORIDE 20 MEQ TAB CR PO SCH ×2 (08:40→11:00)
[2024-10-20] MEDS ORDERED: ENOXAPARIN SODIUM INJ 100 MG/ML SYR SC SCH (15:00)
[2024-10-20] MEDS: ENOXAPARIN SOD INJ 60 MG/0.6 ML SYR SC SCH (16:35)
[2024-10-21] VITALS (7 sets, daily range): BP systolic 112–138; BP diastolic 46–80; PULSE 65–76; RESP 18–20; TEMP 98.4–98.5; O2SAT 97–100
[2024-10-21 06:50] LABS: BASOPHILS # (AUTO) 0.1 (0.0-0.1); BASOPHILS % 0.7 % (0.0-1.0); EOSINOPHILS # (AUTO) 0.2 (0.0-0.4); EOSINOPHILS % 2.2 % (0.0-6.0); HEMOGLOBIN 8.1 g/dL (12.0-16.0); LYMPHOCYTES # (AUTO) 1.2 (1.0-3.2); LYMPHOCYTES % 16.7 % (18.0-39.1); MEAN CORPUSCULAR HEMOGLOBIN 22.8 pg (28-32); MEAN CORPUSCULAR HGB CONC 28.9 g/dL (31-35); MEAN CORPUSCULAR VOLUME 78.9 fL (81-99); MONOCYTES # (AUTO) 0.5 (0.2-0.8); MONOCYTES % 7.3 % (4.4-11.3); NEUTROPHILS # (AUTO) 5.4 (2.1-6.9); NEUTROPHILS % 72.7 % (38.7-80.0); PLATELET COUNT 243 x10e3/uL (140-360); RED BLOOD COUNT 3.55 x10e6/uL (3.6-5.1); RED CELL DISTRIBUTION WIDTH 15.5 % (11.7-14.4); WHITE BLOOD COUNT 7.42 x10e3/uL (4.8-10.8)
[2024-10-21 07:24] LABS: ALBUMIN 3.4 g/dL (3.5-5.0); ALBUMIN/GLOBULIN RATIO 1.6 (0.8-2.0); ANION GAP 14.9 mmol/L (8-16); BILIRUBIN,TOTAL 0.4 mg/dL (0.2-1.2); CALCIUM 8.3 mg/dL (8.4-10.2); CREATININE, SERUM 0.99 mg/dL (0.57-1.11); TOTAL PROTEIN 5.5 g/dL (6.5-8.1)
[2024-10-21 07:46] LABS: POTASSIUM 2.9 mmol/L (3.5-5.1)
[2024-10-21] MEDS: METRONIDAZOLE 500 MG TAB PO SCH (07:52)
[2024-10-21] MEDS: KCL 20 MEQ PACKET/ ORAL SOLN PO ONE (10:29)
[2024-10-21] MEDS: POTASSIUM CHLORIDE 20 MEQ TAB CR PO STA (11:26)
[2024-10-22] VITALS (7 sets, daily range): BP systolic 95–138; BP diastolic 46–76; PULSE 62–89; RESP 16–22; TEMP 98–98.2; O2SAT 99–100
[2024-10-22 06:25] LABS: BASOPHILS # (AUTO) 0.1 (0.0-0.1); BASOPHILS % 1.2 % (0.0-1.0); EOSINOPHILS # (AUTO) 0.1 (0.0-0.4); EOSINOPHILS % 2.2 % (0.0-6.0); HEMATOCRIT 23.9 % (34.2-44.1); HEMOGLOBIN 7.2 g/dL (12.0-16.0); LYMPHOCYTES # (AUTO) 1.2 (1.0-3.2); MEAN CORPUSCULAR HEMOGLOBIN 23.2 pg (28-32); MEAN CORPUSCULAR HGB CONC 30.1 g/dL (31-35); MEAN CORPUSCULAR VOLUME 77.1 fL (81-99); MONOCYTES # (AUTO) 0.5 (0.2-0.8); MONOCYTES % 10.9 % (4.4-11.3); NEUTROPHILS % 60.3 % (38.7-80.0); PLATELET COUNT 217 x10e3/uL (140-360); RED CELL DISTRIBUTION WIDTH 15.4 % (11.7-14.4); WHITE BLOOD COUNT 4.96 x10e3/uL (4.8-10.8)
[2024-10-22 06:45] LABS: ALBUMIN/GLOBULIN RATIO 1.9 (0.8-2.0); ANION GAP 14.3 mmol/L (8-16); BILIRUBIN,TOTAL 0.4 mg/dL (0.2-1.2); CALCIUM 8.2 mg/dL (8.4-10.2); CREATININE, SERUM 0.85 mg/dL (0.57-1.11); TOTAL PROTEIN 4.6 g/dL (6.5-8.1)
[2024-10-22 06:50] LABS: POTASSIUM 3.3 mmol/L (3.5-5.1)
[2024-10-22] MEDS: APIXABAN 5 MG TABLET PO SCH (08:11)
[2024-10-22] MEDS: KCL 20 MEQ PACKET/ ORAL SOLN NG PRN (10:13)
[2024-10-22] MEDS: CIPROFLOXACIN 500 MG TAB PO SCH (10:13)
[2024-10-23] VITALS (7 sets, daily range): BP systolic 117–140; BP diastolic 52–69; PULSE 66–83; RESP 16–20; TEMP 98.1–98.6; O2SAT 99–100
[2024-10-23] MEDS: POTASSIUM CHLORIDE 20 MEQ TAB CR PO ONE (09:50)
[2024-10-23 09:57] LABS: BASOPHILS % 0.8 % (0.0-1.0); EOSINOPHILS # (AUTO) 0.1 (0.0-0.4); EOSINOPHILS % 2.1 % (0.0-6.0); HEMATOCRIT 25.1 % (34.2-44.1); HEMOGLOBIN 7.3 g/dL (12.0-16.0); LYMPHOCYTES % 18.9 % (18.0-39.1); MEAN CORPUSCULAR HEMOGLOBIN 22.8 pg (28-32); MEAN CORPUSCULAR HGB CONC 29.1 g/dL (31-35); MEAN CORPUSCULAR VOLUME 78.4 fL (81-99); MONOCYTES # (AUTO) 0.6 (0.2-0.8); MONOCYTES % 10.4 % (4.4-11.3); NEUTROPHILS # (AUTO) 3.6 (2.1-6.9); NEUTROPHILS % 67.6 % (38.7-80.0); PLATELET COUNT 182 x10e3/uL (140-360); RED CELL DISTRIBUTION WIDTH 15.6 % (11.7-14.4); WHITE BLOOD COUNT 5.29 x10e3/uL (4.8-10.8)
[2024-10-23 10:14] LABS: ANION GAP 14.4 mmol/L (8-16); CALCIUM 7.9 mg/dL (8.4-10.2); CREATININE, SERUM 0.88 mg/dL (0.57-1.11)
[2024-10-23 11:16] LABS: POTASSIUM 3.4 mmol/L (3.5-5.1)
[2024-10-23] MEDS ORDERED: ELIQUIS5 MG PO (17:40)
[2024-10-23] MEDS ORDERED: CIPRO500 MG PO (17:41)
[2024-10-23] MEDS ORDERED: METOPROLOL SUCC25 MG PO (17:41)
[2024-10-23] MEDS ORDERED: METRONIDAZOLE500 MG PO (17:41)
[2024-10-23] MEDS ORDERED: AMIODARONE HCL200 MG PO (17:42)
== END 2024-10-23 19:23 | disposition home or self-care (01) | DRG 391 ==
LOC: ER 09:12 → ERHOLD 13:12 → ICU 14:35 → MED/SURG 10-22 21:34
PROVIDERS: ADMIT Internal Medicine; ATTEND Internal Medicine
PROC: 02HV33Z Insertion of Infusion Device into Superior Vena Cava, Percutaneous Approach (ICD-10-PCS; principal; 2024-10-17)
DX: K57.32 Diverticulitis of large intestine without perforation or abscess without bleeding (principal); I50.23 Acute on chronic systolic (congestive) heart failure; E87.20 Acidosis, unspecified; N39.0 Urinary tract infection, site not specified; I11.0 Hypertensive heart disease with heart failure; I48.0 Paroxysmal atrial fibrillation; D63.8 Anemia in other chronic diseases classified elsewhere; I49.5 Sick sinus syndrome; B96.20 Unspecified Escherichia coli [E. coli] as the cause of diseases classified elsewhere; E11.42 Type 2 diabetes mellitus with diabetic polyneuropathy; E78.5 Hyperlipidemia, unspecified; K56.41 Fecal impaction; K64.9 Unspecified hemorrhoids; I25.10 Atherosclerotic heart disease of native coronary artery without angina pectoris; E87.6 Hypokalemia; G62.9 Polyneuropathy, unspecified; K21.9 Gastro-esophageal reflux disease without esophagitis; R53.81 Other malaise; R42 Dizziness and giddiness; F41.9 Anxiety disorder, unspecified; E66.9 Obesity, unspecified; Z68.31 Body mass index [BMI] 31.0-31.9, adult; Z79.01 Long term (current) use of anticoagulants; Z79.51 Long term (current) use of inhaled steroids; Z95.810 Presence of automatic (implantable) cardiac defibrillator; Z85.71 Personal history of Hodgkin lymphoma; Z90.49 Acquired absence of other specified parts of digestive tract; Z90.710 Acquired absence of both cervix and uterus; Z88.7 Allergy status to serum and vaccine; Z88.5 Allergy status to narcotic agent; Z91.048 Other nonmedicinal substance allergy status; Z82.49 Family history of ischemic heart disease and other diseases of the circulatory system
CPT/HCPCS: 36415; 71045; 74177; 80048; 80053; 81001; 82550; 82948; 83735; 83880; 84436; 84443; 84479; 84484; 85025; 85610; 85730; 86850; 86900; 87040; 87086; 87186; 93005; 94799; 99252; 99285; J1160; J1650; J2270; J2405; J2470; J2543; J2550; J7030; Q9967

== ENCOUNTER 2024-10-31 08:50 | Inpatient (IN) | payer MEDICARE ==
[~2024-10-31] VITALS: Ht 165.1 cm; Wt 86.2 kg
[~2024-10-31 08:50] MED LIST changes: +AMIODARONE HCL200 MG PO; +CIPRO500 MG PO; +ELIQUIS5 MG PO; +METOPROLOL SUCC25 MG PO; +METRONIDAZOLE500 MG PO
[2024-10-31] MEDS: ONDANSETRON HCL INJ 2MG/ML 2ML 2 MG/ML VIAL IV STA (09:52)
[2024-10-31] MEDS: HYDROCODONE/APAP 5MG-325MG TAB PO ONE (09:52)
[2024-10-31 09:53] LABS: BASOPHILS % 0.6 % (0.0-1.0); EOSINOPHILS # (AUTO) 0.2 (0.0-0.4); EOSINOPHILS % 2.1 % (0.0-6.0); HEMATOCRIT 23.5 % (34.2-44.1); LYMPHOCYTES # (AUTO) 0.9 (1.0-3.2); LYMPHOCYTES % 12.3 % (18.0-39.1); MEAN CORPUSCULAR HEMOGLOBIN 22.7 pg (28-32); MEAN CORPUSCULAR HGB CONC 29.8 g/dL (31-35); MEAN CORPUSCULAR VOLUME 76.1 fL (81-99); MONOCYTES # (AUTO) 0.7 (0.2-0.8); MONOCYTES % 10.4 % (4.4-11.3); NEUTROPHILS # (AUTO) 5.2 (2.1-6.9); PLATELET COUNT 254 x10e3/uL (140-360); RED BLOOD COUNT 3.09 x10e6/uL (3.6-5.1)
[2024-10-31 10:13] LABS: INR 1.03; PROTHROMBIN TIME 14.1 seconds (11.9-14.5)
[2024-10-31 10:14] LABS: PARTIAL THROMBOPLASTIN TIME 26.4 seconds (23.8-35.5)
[2024-10-31] MEDS ORDERED: FUROSEMIDE INJ 10 MG/ML 2 ML VIAL IV PRN (10:15)
[2024-10-31 10:25] LABS: ALBUMIN 3.4 g/dL (3.5-5.0); ALBUMIN/GLOBULIN RATIO 1.5 (0.8-2.0); ANION GAP 13.2 mmol/L (8-16); BILIRUBIN,TOTAL 0.5 mg/dL (0.2-1.2); CALCIUM 8.5 mg/dL (8.4-10.2); CREATININE, SERUM 1.14 mg/dL (0.57-1.11); MAGNESIUM 1.9 MG/DL (1.3-2.1); TOTAL PROTEIN 5.6 g/dL (6.5-8.1)
[2024-10-31 10:28] LABS: POTASSIUM 3.2 mmol/L (3.5-5.1)
[2024-10-31 10:31] LABS: TROPONIN I 0.003 ng/mL (0-0.300)
[2024-10-31] MEDS ORDERED: ACETAMINOPHEN 325 MG TAB PO PRN (10:45)
[2024-10-31] MEDS ORDERED: ONDANSETRON HCL INJ 2MG/ML 2ML 2 MG/ML VIAL IV PRN (10:45)
[2024-10-31 10:57] VITALS: PULSE 77; RESP 16
[2024-10-31] MEDS: POTASSIUM CHLORIDE 20 MEQ TAB CR PO STA (11:43)
[2024-10-31 12:17] VITALS: BP 131/61; PULSE 70; RESP 16; TEMP 97.7; O2SAT 100
[2024-10-31] MEDS ORDERED: CITALOPRAM HBR20 MG PO (12:58)
[2024-10-31] MEDS ORDERED: B12 ACTIVE1000 MCG (12:59)
[2024-10-31] MEDS ORDERED: MELOXICAM7.5 MG PO (13:00)
[2024-10-31] MEDS ORDERED: FUROSEMIDE40 MG PO (13:02)
[2024-10-31 13:31] VITALS: TEMP 97.9
[2024-10-31] MEDS: SODIUM CHLORIDE 0.9% 1000ML 1,000 ML IV ONE (14:29)
[2024-10-31] MEDS: SODIUM CHLORIDE 0.9% 250ML 250 ML IV ONE (14:29)
[2024-10-31 15:28] VITALS: BP 111/55; PULSE 70; RESP 16; TEMP 97.7; O2SAT 100
[2024-10-31] MEDS: HYDROCODONE/APAP 10MG-325MG TAB PO PRN (16:36)
[2024-10-31] MEDS: HYDROMORPHONE 1MG/1ML INJ IV PRN ×2 (17:24→23:16)
[2024-10-31 20:34] VITALS: BP 112/50; PULSE 77; RESP 16; TEMP 98.1; O2SAT 100
[2024-10-31 21:00] VITALS: BP 112/50; PULSE 77; RESP 16; TEMP 98.1; O2SAT 100
[2024-10-31] MEDS: SODIUM CHLORIDE 0.9% 250ML 250 ML ONE (22:42)
[2024-11-01] VITALS (7 sets, daily range): BP systolic 107–129; BP diastolic 49–58; PULSE 70–80; RESP 16–19; TEMP 97.7–98.4; O2SAT 97–100
[2024-11-01] MEDS ORDERED: ZOLPIDEM TARTRATE 5 MG TAB PO PRN (04:15)
[2024-11-01 05:16] LABS: BASOPHILS # (AUTO) 0.1 (0.0-0.1); BASOPHILS % 0.9 % (0.0-1.0); EOSINOPHILS # (AUTO) 0.2 (0.0-0.4); EOSINOPHILS % 4.2 % (0.0-6.0); HEMATOCRIT 31.9 % (34.2-44.1); HEMOGLOBIN 9.9 g/dL (12.0-16.0); LYMPHOCYTES # (AUTO) 1.1 (1.0-3.2); MEAN CORPUSCULAR HEMOGLOBIN 24.8 pg (28-32); MEAN CORPUSCULAR VOLUME 79.9 fL (81-99); MONOCYTES # (AUTO) 0.6 (0.2-0.8); MONOCYTES % 10.9 % (4.4-11.3); NEUTROPHILS # (AUTO) 3.6 (2.1-6.9); NEUTROPHILS % 63.6 % (38.7-80.0); PLATELET COUNT 211 x10e3/uL (140-360); RED BLOOD COUNT 3.99 x10e6/uL (3.6-5.1); RED CELL DISTRIBUTION WIDTH 16.6 % (11.7-14.4); WHITE BLOOD COUNT 5.69 x10e3/uL (4.8-10.8)
[2024-11-01 05:35] LABS: ALBUMIN 3.4 g/dL (3.5-5.0); ALBUMIN/GLOBULIN RATIO 1.6 (0.8-2.0); ANION GAP 10.8 mmol/L (8-16); BILIRUBIN,TOTAL 0.9 mg/dL (0.2-1.2); CALCIUM 8.4 mg/dL (8.4-10.2); CREATININE, SERUM 0.92 mg/dL (0.57-1.11); POTASSIUM 3.8 mmol/L (3.5-5.1); TOTAL PROTEIN 5.5 g/dL (6.5-8.1)
[2024-11-01] MEDS: METRONIDAZOLE 500 MG TAB PO SCH (08:48)
[2024-11-01] MEDS: METOPROLOL SUCCINATE 25 MG TAB XL PO SCH (08:48)
[2024-11-01] MEDS: CITALOPRAM HYDROBROMIDE 20 MG TAB PO SCH (08:48)
[2024-11-01] MEDS: AMIODARONE HCL 200 MG TAB PO SCH (08:48)
[2024-11-01] MEDS: CIPROFLOXACIN 500 MG TAB PO SCH (08:48)
[2024-11-02 00:39] VITALS: BP 117/48; PULSE 71; RESP 16; TEMP 97.7; O2SAT 98
[2024-11-02 04:31] VITALS: BP 112/48; PULSE 65; RESP 16; TEMP 97.7; O2SAT 98
[2024-11-02 05:06] LABS: BILIRUBIN,URINE NEGATIVE (NEGATIVE); CLARITY,URINE CLEAR (CLEAR); COLOR,URINE YELLOW (YELLOW); GLUCOSE, URINE NEGATIVE (NEGATIVE); KETONES,URINE NEGATIVE (NEGATIVE); LEUKOCYTE ESTERASE ,URINE TRACE (NEGATIVE); NITRITE,URINE NEGATIVE (NEGATIVE); PH,URINE 5.5 (5 - 7); PROTEIN,URINE DIPSTICK NEGATIVE (NEGATIVE); URINE UROBILINOGEN 0.2 mg/dL (0.2 - 1)
[2024-11-02 05:35] LABS: BACTERIA,URINE MANY /HPF; CALCIUM OXALATE CRYSTALS,UR FEW (FEW); EPITHELIAL CELLS,URINE FEW /LPF
[2024-11-02] MEDS: KETOROLAC TROMETHAMINE 30 MG/ML VIAL IV SCH (06:29)
[2024-11-02 07:55] VITALS: BP 116/50; PULSE 70; PULSE 79; RESP 16; TEMP 97.9; TEMP 98.2; O2SAT 98
[2024-11-02 11:54] VITALS: BP_SYST 116; BP_SYST 121; BP_DIAS 50; BP_DIAS 57; PULSE 68; PULSE 70; PULSE 79; RESP 16; TEMP 97.9; TEMP 98; TEMP 98.6; O2SAT 98
[2024-11-02 16:35] VITALS: BP 119/65; PULSE 62; RESP 16; TEMP 98; O2SAT 98
[2024-11-02 20:00] VITALS: BP 116/49; PULSE 67; RESP 18; TEMP 97.5; O2SAT 97
[2024-11-03] VITALS: BP 118/53; PULSE 68; RESP 18; TEMP 97.3; O2SAT 100
[2024-11-03 05:45] VITALS: BP 119/61; PULSE 67; RESP 18; TEMP 97.5; O2SAT 99
[2024-11-03 08:09] LABS: BASOPHILS % 0.6 % (0.0-1.0); EOSINOPHILS # (AUTO) 0.3 (0.0-0.4); EOSINOPHILS % 5.3 % (0.0-6.0); HEMATOCRIT 29.8 % (34.2-44.1); HEMOGLOBIN 9.2 g/dL (12.0-16.0); LYMPHOCYTES # (AUTO) 1.2 (1.0-3.2); LYMPHOCYTES % 18.3 % (18.0-39.1); MEAN CORPUSCULAR HEMOGLOBIN 24.4 pg (28-32); MEAN CORPUSCULAR HGB CONC 30.9 g/dL (31-35); MONOCYTES # (AUTO) 0.7 (0.2-0.8); MONOCYTES % 10.4 % (4.4-11.3); NEUTROPHILS # (AUTO) 4.2 (2.1-6.9); NEUTROPHILS % 64.9 % (38.7-80.0); PLATELET COUNT 194 x10e3/uL (140-360); RED BLOOD COUNT 3.77 x10e6/uL (3.6-5.1); RED CELL DISTRIBUTION WIDTH 18.4 % (11.7-14.4); WHITE BLOOD COUNT 6.45 x10e3/uL (4.8-10.8)
[2024-11-03 08:39] LABS: ALBUMIN/GLOBULIN RATIO 1.8 (0.8-2.0); ANION GAP 9.8 mmol/L (8-16); BILIRUBIN,TOTAL 0.5 mg/dL (0.2-1.2); CALCIUM 8.3 mg/dL (8.4-10.2); CREATININE, SERUM 0.91 mg/dL (0.57-1.11); POTASSIUM 3.8 mmol/L (3.5-5.1); TOTAL PROTEIN 4.7 g/dL (6.5-8.1)
[2024-11-03 09:48] VITALS: BP 126/59; PULSE 67; RESP 18; TEMP 98.8; O2SAT 100
[2024-11-03] MEDS: ONDANSETRON HCL INJ 2MG/ML 2ML 2 MG/ML VIAL IV PRN (09:53)
[2024-11-03 10:11] VITALS: BP 126/59; PULSE 67; RESP 18; TEMP 98.8; O2SAT 100
[2024-11-03 16:30] VITALS: BP 123/52; PULSE 65; RESP 20; TEMP 98.4; O2SAT 98
[2024-11-03 17:04] VITALS: BP 123/52; PULSE 65
== END 2024-11-03 18:55 | DRG 812 ==
LOC: ER 09:16 → ERHOLD 10:36 → MED/SURG 11:49
PROVIDERS: ADMIT Internal Medicine; ATTEND Internal Medicine
PROC: 30233N1 Transfusion of Nonautologous Red Blood Cells into Peripheral Vein, Percutaneous Approach (ICD-10-PCS; principal; 2024-10-31)
DX: D64.9 Anemia, unspecified (principal); N39.0 Urinary tract infection, site not specified; I49.5 Sick sinus syndrome; I48.91 Unspecified atrial fibrillation; I25.10 Atherosclerotic heart disease of native coronary artery without angina pectoris; E78.5 Hyperlipidemia, unspecified; G47.30 Sleep apnea, unspecified; I12.9 Hypertensive chronic kidney disease with stage 1 through stage 4 chronic kidney disease, or unspecified chronic kidney disease; N18.31 Chronic kidney disease, stage 3a; E87.6 Hypokalemia; R53.1 Weakness; M62.838 Other muscle spasm; F41.9 Anxiety disorder, unspecified; M25.512 Pain in left shoulder; B96.20 Unspecified Escherichia coli [E. coli] as the cause of diseases classified elsewhere; Z79.01 Long term (current) use of anticoagulants; Z79.51 Long term (current) use of inhaled steroids; Z95.0 Presence of cardiac pacemaker; Z90.49 Acquired absence of other specified parts of digestive tract; Z88.0 Allergy status to penicillin; Z88.5 Allergy status to narcotic agent; Z91.048 Other nonmedicinal substance allergy status; Z82.49 Family history of ischemic heart disease and other diseases of the circulatory system
CPT/HCPCS: 36415; 70450; 71250; 72125; 72128; 80053; 81001; 83735; 84484; 85025; 85610; 85730; 86850; 86900; 86920; 99252; 99284; J1171; J1885; J2405; J2470; J7050; P9016

== ENCOUNTER 2025-02-20 11:25 | Emergency (ER) | payer MEDICARE ==
[~2025-02-20] VITALS: Ht 165.1 cm; Wt 79.1 kg
[~2025-02-20 11:25] MED LIST changes: +B12 ACTIVE1000 MCG; +CEPHALEXIN500 MG PO; +CITALOPRAM HBR20 MG PO; +DICYCLOMINE HCL10 MG PO; +FEROSUL325 MG PO; +FUROSEMIDE40 MG PO; +HYDROCODON-ACE1 EA11 PO; +MELOXICAM7.5 MG PO; +MIDODRINE HCL2.5 MG PO; +PRESERVISION L1 EAC1; +ULTRAM 50MG50 MG PO; +WOMEN'S DAILY1 EACH
[2025-02-20 13:35] VITALS: PULSE 70; RESP 16; TEMP 97.7; O2SAT 94
== END 2025-02-20 14:20 | disposition home or self-care (01) ==
LOC: FSED 11:30
DX: S00.83XA Contusion of other part of head, initial encounter (principal); S39.82XA Other specified injuries of lower back, initial encounter; W01.0XXA Fall on same level from slipping, tripping and stumbling without subsequent striking against object, initial encounter; Y93.01 Activity, walking, marching and hiking; Y92.89 Other specified places as the place of occurrence of the external cause; I10 Essential (primary) hypertension; I48.91 Unspecified atrial fibrillation; I25.10 Atherosclerotic heart disease of native coronary artery without angina pectoris; E78.5 Hyperlipidemia, unspecified; F41.9 Anxiety disorder, unspecified; G47.30 Sleep apnea, unspecified; Z85.72 Personal history of non-Hodgkin lymphomas; Z95.810 Presence of automatic (implantable) cardiac defibrillator
CPT/HCPCS: 70450; 72220; 99283

== ENCOUNTER 2025-05-27 09:46 | Emergency (ER) | payer MEDICARE ==
[~2025-05-27] VITALS: Ht 165.1 cm; Wt 78.1 kg
[2025-05-27] MEDS ORDERED: OXAZEPAM10 MG PO (10:26)
[2025-05-27] MEDS ORDERED: AMBIEN5 MG PO (10:26)
[2025-05-27] MEDS ORDERED: IOPAMIDOL 370 MG/ML 100 ML INFUS..BTL INJ ONE (12:09)
[2025-05-27 13:31] VITALS: PULSE 70; RESP 16; TEMP 97.7; O2SAT 96
[2025-05-27] MEDS ORDERED: HYDROCODON-ACE1 EA11 PO (13:33)
== END 2025-05-27 13:44 | disposition home or self-care (01) ==
LOC: FSED 09:52
DX: M54.50 Low back pain, unspecified (principal); S20.212A Contusion of left front wall of thorax, initial encounter; W01.198A Fall on same level from slipping, tripping and stumbling with subsequent striking against other object, initial encounter; Y93.01 Activity, walking, marching and hiking; Y92.89 Other specified places as the place of occurrence of the external cause; I12.9 Hypertensive chronic kidney disease with stage 1 through stage 4 chronic kidney disease, or unspecified chronic kidney disease; N18.9 Chronic kidney disease, unspecified; I48.91 Unspecified atrial fibrillation; E78.5 Hyperlipidemia, unspecified; I25.10 Atherosclerotic heart disease of native coronary artery without angina pectoris; G47.30 Sleep apnea, unspecified; M54.9 Dorsalgia, unspecified; G89.29 Other chronic pain; F41.9 Anxiety disorder, unspecified; Z85.72 Personal history of non-Hodgkin lymphomas; Z87.19 Personal history of other diseases of the digestive system
CPT/HCPCS: 71260; 74177; 80053; 85025; 99284; Q9967